=== PATIENT | female | born 1970 | race Caucasian/White ===

== ENCOUNTER → 2022-04-12 13:29 | Outpatient (BNVA) | payer SELFPAY | PROVIDERS: Visit Provider Podiatrist Foot & Ankle Surgery | DX: M77.52 Other enthesopathy of left foot and ankle (principal); M77.51 Other enthesopathy of right foot and ankle; M25.70 Osteophyte, unspecified joint | CPT/HCPCS: 36415; 73630; 85651; 86140; 86200; 86225; 86235; 86431 ==

== ENCOUNTER 2022-05-02 10:37 | Outpatient (CLI) | payer SELFPAY ==
[2022-05-02 11:23] LABS: Basophils # 0.1 10^3/uL (0.0-0.1); Basophils % 0.4 %; Eosinophils % 0.2 %; Hemoglobin 14.2 g/dL (11.5-15.3); Lymphocytes # 1.3 10^3/uL (0.8-4.8); Lymphocytes % 10.7 %; Mean Corpuscular Hemoglobin 31.3 pg (28.0-34.0); Mean Corpuscular Volume 94.7 fl (81-99); Mean Platelet Volume 10.5 fL (7.4-10.4); Monocytes # 0.2 10^3/uL (0.2-0.9); Monocytes % 1.7 %; Neutrophils # 10.82 10^3/uL (1.8-7.7); Neutrophils % 86.1 %; Nucleated Red Blood Cells % 0 %; Platelet Count 303 10^3/cmm (130-400); Red Blood Count 4.54 10^6/uL (4.1-5.3); White Blood Count 12.6 10^3/uL (4.0-10.0)
[2022-05-02 11:39] LABS: Alanine Aminotransferase 52 U/L (0-33); Albumin Level 3.9 g/dL (3.5-5.2); Alkaline Phosphatase 51 U/L (35-105); Aspartate Amino Transferase 33 U/L (0-32); Globulin 3.3 g/dL (1.3-4.6); Glomerular Filtration Rate 88.6 mL/min (90-130); Total Bilirubin 0.2 mg/dL (0.15-1.2); Total Protein 7.2 g/dL (6.6-8.7)
== END 2022-05-02 10:38 | disposition home or self-care (01) ==
PROVIDERS: PCP Nurse Practitioner Family; Visit Provider Internal Medicine Rheumatology
DX: M19.90 Unspecified osteoarthritis, unspecified site (principal); Z79.899 Other long term (current) drug therapy
CPT/HCPCS: 36415; 80076; 82565; 85025; 86140

== ENCOUNTER → 2022-05-25 09:38 | Outpatient (BNVA) | payer OTHER, SELFPAY | PROVIDERS: PCP Nurse Practitioner Family; Visit Provider Nurse Practitioner Family | DX: R06.02 Shortness of breath (principal); R07.9 Chest pain, unspecified | CPT/HCPCS: 71046 ==

== ENCOUNTER → 2022-05-30 10:20 | Outpatient (BNVA) | payer OTHER, SELFPAY | PROVIDERS: PCP Nurse Practitioner Family; Visit Provider Internal Medicine Rheumatology | DX: M25.50 Pain in unspecified joint (principal); Z79.899 Other long term (current) drug therapy; Z11.59 Encounter for screening for other viral diseases | CPT/HCPCS: 80076; 82565; 85025; 86140; 86704; 86803; 87340 ==

== ENCOUNTER → 2022-08-01 08:54 | Outpatient (BNVA) | payer OTHER, SELFPAY | PROVIDERS: PCP Nurse Practitioner Family; Visit Provider Internal Medicine Rheumatology | DX: M05.79 Rheumatoid arthritis with rheumatoid factor of multiple sites without organ or systems involvement (principal); Z79.899 Other long term (current) drug therapy | CPT/HCPCS: 80076; 82565; 85025; 86140 ==

== ENCOUNTER → 2022-09-26 12:31 | Outpatient (BNVA) | payer OTHER, SELFPAY | PROVIDERS: PCP Nurse Practitioner Family; Visit Provider Internal Medicine Rheumatology | DX: Z79.899 Other long term (current) drug therapy (principal); M05.79 Rheumatoid arthritis with rheumatoid factor of multiple sites without organ or systems involvement; Z71.85 Encounter for immunization safety counseling | CPT/HCPCS: 36415; 80076; 82565; 85025; 86140 ==

== ENCOUNTER 2022-12-02 15:06 | Outpatient (CLI) | payer OTHER, SELFPAY ==
--- NOTE | 2022-12-02 | USCV_ITS ---
Clotilde Delgadillo Age: 52 Gender: F : 1970 Exam Date: 12/02/2022 15:25 Ordering Phys: Neeru Brumfield-BC XX Technologist: EDGAR [place] [facility] [place] LE Pain HISTORY: Lower extremity pain. PROCEDURES: The venous duplex Doppler examination of both lower extremities was performed in the standard fashion. The following venous structures were evaluated: common femoral vein, profunda vein, proximal portion of the greater saphenous vein, superficial femoral vein, and the popliteal vein. In addition, the posterior tibial and peroneal trunk were evaluated. Serial compression, augmentation maneuvers, and spectral Doppler flow evaluation were performed. FINDINGS: Lt DVT seen from peroneal veins through the prox femoral vein. CONCLUSIONS Acute LEFT DVT from the proximal femoral vein extending distally thru the popliteal into the peroneal veins. RIGHT lower extremity veins are patent. Message left for Neeru FAUSTIN at time of study Joon Hannah MD (Electronically Signed) Final Date: 02 December 2022 15:56 S
== END 2022-12-02 15:07 | disposition home or self-care (01) ==
LOC: RAD 15:07
PROVIDERS: PCP Nurse Practitioner Family; Visit Provider Nurse Practitioner Family
DX: M79.661 Pain in right lower leg (principal); M79.662 Pain in left lower leg; I82.412 Acute embolism and thrombosis of left femoral vein
CPT/HCPCS: 93970

== ENCOUNTER → 2022-12-26 11:47 | Outpatient (BNVA) | payer OTHER, SELFPAY | PROVIDERS: PCP Nurse Practitioner Family; Visit Provider Internal Medicine Rheumatology | DX: Z79.899 Other long term (current) drug therapy (principal); M05.79 Rheumatoid arthritis with rheumatoid factor of multiple sites without organ or systems involvement; Z71.85 Encounter for immunization safety counseling | CPT/HCPCS: 36415; 80076; 82565; 85025; 86140 ==

== ENCOUNTER 2023-05-03 10:10 | Outpatient (CLI) | payer OTHER, SELFPAY ==
[2023-05-03 11:28] LABS: Basophils # 0.1 10^3/uL (0.0-0.1); Basophils % 0.6 %; Eosinophils # 0.2 10^3/uL (0.0-0.8); Eosinophils % 2.2 %; Hematocrit 42.8 % (36-47); Lymphocytes # 2.5 10^3/uL (0.8-4.8); Lymphocytes % 30.6 %; Mean Corpuscular HGB Conc 32.7 g/dL (30-55); Mean Corpuscular Hemoglobin 31.9 pg (27-33); Mean Corpuscular Volume 97.5 fl (85-98); Mean Platelet Volume 11.4 fL (7.4-10.4); Monocytes # 0.7 10^3/uL (0.2-0.9); Monocytes % 8.8 %; Neutrophils # 4.64 10^3/uL (1.8-7.7); Neutrophils % 57.1 %; Nucleated Red Blood Cells % 0 %; Platelet Count 178 10^3/cmm (157-399); Red Blood Count 4.39 10^6/uL (3.85-5.65); Red Cell Distribution Width 13.2 % (12.1-15.1); White Blood Count 8.14 10^3/uL (3.29-11.43)
[2023-05-03 11:42] LABS: Alanine Aminotransferase 27 U/L (0-33); Alkaline Phosphatase 131 U/L (35-105); Aspartate Amino Transferase 23 U/L (0-32); Globulin 2.8 g/dL (1.3-4.6); Glomerular Filtration Rate 88.2 mL/min (90-130); Total Bilirubin 0.3 mg/dL (0.15-1.2); Total Protein 6.8 g/dL (6.6-8.7)
--- NOTE | 2023-06-01 10:53 | P.CONIM_ITS ---
<Statement entered by Alexandre Mancilla MD - 06/01/23 14:41> I reviewed the medical student's note performed by Jemal Lamb and agree with clinical evaluation assessment and plan. Dr. Mancilla Providers/Reason For Consult 2 Consulting Physician/Specialty*: Dr. Mancilla, Neurology Reason for Consult*: Patient reports L face, L arm and L leg numbess, tingling, shooting pain and jerking movements since Feb 2023 Requesting Physician: Neeru Brumfield Attending Physician: Alexander Mancilla MD Primary Care Provider: Neeru Brumfield History of Present Illness History of Present Illness Clotilde Delgadillo is a 53 year old female who presents to the neurology clinic for L lower face, L arm and L leg intermittent numbness, tingling, shooting pain and jerking movements starting in Feb 2023, along with word finding difficulty. She was worked up for stroke for this in Feb 2023 in [facility], with CT and CTA. patient reports findings were normal, negative for stroke. Currently parasthesias have been worsening and moyclonic jerking movements has changed to involuntary tensing of the muscles involved. Patient has PMH of RA with neck back and hip pain, asthma with exercise intolerance, DVT LLE 2022, Migraines onset 11 year old. Negative for MS, stroke, seizures, or syncope or heart problems No side effects of medications at this time reported Family history: father with pacemaker No smoking, or drug use Review of Systems 2 General: Reports: 10 or more systems reviewed and unremarkable except in HPI and below Musc: Reports: neck pain, back pain, limited range of motion and other (Right hip pain) Medications/Allergies Home Medications Medication Instructions Recorded Confirmed Last Taken Type folic acid 1 mg tablet 3 mg (3 x 1 mg) PO DAILY #90 tabs 03/01/23 06/01/23 Unknown Rx omeprazole 40 mg capsule,delayed 40 mg PO DAILY #90 caps 03/01/23 06/01/23 Unknown Rx release hydroxychloroquine 200 mg tablet 200 mg PO BID #60 tabs 04/06/23 06/01/23 Unknown Rx hydroxychloroquine 200 mg tablet 200 mg PO BID #60 tabs 04/06/23 06/01/23 Unknown Rx upadacitinib 15 mg tablet,extended 15 mg PO DAILY #30 tabs 04/06/23 06/01/23 Unknown Rx release 24 hr (Rinvoq) pregabalin 50 mg capsule 50 mg PO TID 06/01/23 06/01/23 Unknown History Allergies Allergy/AdvReac Type Severity Reaction Status Date / Time meloxicam Allergy Intermediate Unknown Verified 06/01/23 09:55 aspirin AdvReac Intermediate upset Verified 06/01/23 09:55 stomach methotrexate AdvReac Intermediate hair fell Verified 06/01/23 09:55 out bactrim Allergy rash Uncoded 06/01/23 09:55 mushrooms Allergy vomiting Uncoded 06/01/23 09:55 and rash tramadol AdvReac Intermediate nausea Uncoded 06/01/23 09:55 vomiting and chills folic acid 3 mg daily hydroxychloroquine 200mg BID omeprazole 40mg daily Rinvoq 15mg Ext Release PO daily PFSH Acute 2 PFSH: Medical History (Updated 06/01/23 @ 11:12 by Alexander Mancilla MD) Weakness History of DVT (deep vein thrombosis) left lower extremity Chronic steroid use Immunization counseling High risk medication use Seropositive rheumatoid arthritis of multiple sites Asthma Surgical History History of cholecystectomy History of tonsillectomy Family History Grandmother Cancer Other Family history of premature coronary artery disease Hypertension Lung disease Denies family history of Rheumatoid arthritis Diabetes Lupus Chronic kidney disease (CKD) Stroke Social History Smoking and tobacco/nicotine status: never used tobacco/nicotine Alcohol intake: never Substance/Drug Use: never Physical Exam 2 Narrative: General: AOx4 no acute distress HEENT: normocephalic, atraumatic, EOMI, PERLLA, neck supple, no sinus drainage or pressure, , tempanic membrane normal, normal palate elevation and tongue movements normal Neck Normal Range of motion and strength, shoulder shrug normal strength bilaterally Cardiac: RRR, no M/R/G, no edema, radial pulses 1+ Pulmonic: Normal breath sounds, Abdomen: normal bowel sounds MSK:normal strength upper and lower extremities, decreased range of motion R hip, Neurologic: no babinski, no garza, DTR +2 throughout, no clonus, no spasticity, no fasciculations, no muscular atrophy, normal sensation, gait normal, rapid alternating movements normal, heel to carey normal, finger to nose slow intact, positive romberg, fine tremor with arms held still outstreched, Psych: normal mood and affect Data 05/03/23 10:55 05/03/23 10:55 A&P Assessment and plan (1) Paresthesia of left arm and leg: (2) Myoclonic jerking: (3) Extremity pain: (4) Neck pain: Plan Diagnosis: 1 history DVT: Evaluate for hypercoagulable conditions 2. Evaluate for possible stroke/TIAs 3. evaluate for epileptiform activity 4. Evaluate for causes of neuropathy 5. evaluate for inflammatory condition causing myoclonus shooting pain and parasthesias Plan: 1. evaluate for hypercoagulable condition CBC, CMP, homocystein, Beta1 glycoprotein, Lupus anticoagulant, Factor 5 leiden activity, 2 Evaluate for stroke/TIA or cerebral abnormality: MRI head with contrast 3. Evaluate for epileptiform activity Sleep deprived EEG 4. Evaluate for causes of neuropathy: B12, TSH free T4, free T3, TPO Antibody Coding Level of Care Code Acute Code for Chg Fwd Diagnoses Paresthesia of left arm and leg R20.2 Myoclonic jerking G25.3 Extremity pain M79.609 Neck pain M54.2
== END 2023-05-03 10:11 | disposition home or self-care (01) ==
LOC: LAB 10:11
PROVIDERS: PCP Nurse Practitioner Family; Visit Provider Internal Medicine Rheumatology
DX: M05.79 Rheumatoid arthritis with rheumatoid factor of multiple sites without organ or systems involvement (principal); Z79.899 Other long term (current) drug therapy
CPT/HCPCS: 36415; 80076; 82565; 85025; 86140

== ENCOUNTER → 2023-06-01 10:59 | Outpatient (BNVA) | payer OTHER, SELFPAY | PROVIDERS: PCP Nurse Practitioner Family; Visit Provider Psychiatry & Neurology Neurology | DX: M25.50 Pain in unspecified joint (principal); R29.90 Unspecified symptoms and signs involving the nervous system; M05.79 Rheumatoid arthritis with rheumatoid factor of multiple sites without organ or systems involvement; E55.9 Vitamin D deficiency, unspecified; Z86.718 Personal history of other venous thrombosis and embolism; G45.9 Transient cerebral ischemic attack, unspecified; M54.2 Cervicalgia; M79.10 Myalgia, unspecified site; R53.1 Weakness; R20.2 Paresthesia of skin; G25.3 Myoclonus; M79.609 Pain in unspecified limb | CPT/HCPCS: 36415; 81241; 82306; 82607; 82746; 83090; 83735; 83921; 85210; 85613; 85730; 86146; 86147 ==

== ENCOUNTER 2023-06-09 06:37 | Outpatient (CLI) | payer OTHER, SELFPAY ==
--- NOTE | 2023-06-09 06:45 | USCV_ITS ---
Elie Clotilde Age: 53 Gender: F : 1970 Exam Date: 06/09/2023 06:47 Ordering Phys: Alexander Mancilla MD Technologist: EDGAR [place] [facility] [place]: LT sided numbness Risk Factors: Previous Vascular Surgery: Right Brachial BP: / Left Brachial BP: / Right Left Velocity (cm/s) Spectral Plaque Velocity (cm/s) Spectral Plaque Syst/Diast Broadening Syst/Diast Broadening 110.00/38.70 Prox CCA 112.20/ 43.70 86.70/ 32.30 Mid CCA 97.90 / 41.30 84.10/ 31.00 Distal CCA 95.50 / 46.00 78.10/ 29.50 Prox ICA 69.40 / 33.00 87.60/ 47.60 Mid ICA 103.50/ 42.10 125.90/57.60 Distal ICA 84.30 / 40.80 120.00 ECA 110.30 1.50 ICA/CCA 1.10 Antegrade Vertebral Antegrade 55.80/ 23.70 cm/s 47.70/ 21.10 cm/s Tri Subclavian Tri 124.2 122.4 0 0 FINDINGS Comparison: none available. No significant elevation of systolic or diastolic velocities. Waveforms are normal. No significant amount of calcified plaque or intimal thickening identified. CONCLUSIONS Normal carotid doppler ultrasound. Dr. Ling Hernandez DO (Electronically Signed) Final Date: 09 June 2023 12:25 S
== END 2023-06-09 06:38 | disposition home or self-care (01) ==
LOC: RAD 06:37
PROVIDERS: PCP Nurse Practitioner Family; Visit Provider Psychiatry & Neurology Neurology
DX: R29.90 Unspecified symptoms and signs involving the nervous system (principal); M05.79 Rheumatoid arthritis with rheumatoid factor of multiple sites without organ or systems involvement; Z86.718 Personal history of other venous thrombosis and embolism; R20.0 Anesthesia of skin
CPT/HCPCS: 93880

== ENCOUNTER 2023-07-04 09:22 | Outpatient (CLI) | payer OTHER, SELFPAY ==
--- NOTE | 2023-07-04 09:30 | MR_ITS ---
WS: [id number] MR CERVICAL SPINE WO/W DATE OF EXAMINATION: COMPARISON: None. HISTORY: G45.9 - Transient cerebral ischemic attack, unspecified TECHNIQUE: Sagittal T1, T2 and T2 inversion recovery; axial T2, T2 gradient and fiesta. Post gadolini um imaging with fat saturation technique. FINDINGS: Straightening of the normal cervical lordosis. No high grade central canal narrowing. Small periphera l T2 hyperintense lesion in the cervical cord at RIGHT C5-6. No enhancement. No other visualized lesi ons. This may represent a chronic small demyelinating lesion. Recommend correlation with clinical his tory. C2-3: Mild facet arthropathy. Spinal canal and foramen are patent. C3-4: Mild facet arthropathy. Spinal canal and foramen are patent. C4-5: Mild facet arthropathy. Spinal canal and foramen are patent. C5-6: Shallow RIGHT paracentral protrusion with slight contact of the cervical cord. Mild facet arthr opathy. Spinal canal and foramen are patent. C6-7: No significant disc bulging. Spinal canal and foramen are patent. C7-T1: Mild LEFT and no significant RIGHT foraminal narrowing. Spinal canal is patent. MR/MR cervical spine wo/w [id number] IMPRESSION: 1. Straightening of the normal cervical lordosis. No high-grade central canal narrowing. 2. Small eccentric T2 hyperintense lesion in the RIGHT dorsal cord at C5-6. No enhancement. This may present a chronic demyelinating lesion. No cord atrophy. No other suspicious lesions. Recommend correlation with clinical history and c onsider MRI of the head in further evaluation. 3. Minimal disc bulging C4-C5 and C5-C6 with slight indentation on the RIGHT v entral cervical cord at C5-6. 4. Mild facet arthropathy worse at C4-C5 and C5-C6 5. Mild LEFT C7-T1 bony foraminal narrowing.
[2023-07-04] MEDS: gadobenate dimeglumine 20 mL vial IV (10:06)
== END 2023-07-04 09:23 | disposition home or self-care (01) ==
LOC: RAD 09:24
PROVIDERS: PCP Nurse Practitioner Family; Visit Provider Psychiatry & Neurology Neurology
DX: G45.9 Transient cerebral ischemic attack, unspecified (principal); M05.79 Rheumatoid arthritis with rheumatoid factor of multiple sites without organ or systems involvement; M50.321 Other cervical disc degeneration at C4-C5 level; M50.322 Other cervical disc degeneration at C5-C6 level; M47.892 Other spondylosis, cervical region; M99.62 Osseous and subluxation stenosis of intervertebral foramina of thoracic region
CPT/HCPCS: 72156; A9577

== ENCOUNTER 2023-07-05 09:13 | Outpatient (CLI) | payer OTHER, SELFPAY ==
--- NOTE | 2023-07-05 09:30 | USCV_ITS ---
Clotilde Delgadillo Age: 53 Gender: F : 1970 Exam Date: 07/05/2023 09:24 Ordering Phys: Nelda Knox Technologist: CT Exam Location: [facility] [place] Indication: gambino BP: 115 / 81 HR: 69 Rhythm: Sinus Technical Quality: Adequate MEASUREMENTS (Male / Female) Normal Values 2D ECHO LVOT Diameter 2.0 cm LV Ejection Fraction MOD 2C 61.1 % LV Ejection Fraction 2C AL 60.9 % LA Diameter 3.6 cm RA Systolic Volume 4C AL 42.0 ml RA Systolic Volume 4C MOD 41.2 ml LA Sys Volume AL 40.0 cm cubed LA Sys Volume Index AL 17.7 cm cubed/m squared Aorta at Sinotubular Diameter 2.6 cm M-MODE LA Ao Ratio MM 1.6 AV Cusp Separation MM 1.8 cm DOPPLER AV Peak Velocity 102.0 cm/s LVOT Peak Velocity 76.0 cm/s AV Area Cont Eq vti 2.7 cm squared AV Area Cont Eq pk 2.5 cm squared MV Peak Velocity 80.0 cm/s MV Area PHT 3.7 cm squared Mitral E to A Ratio 1.3 TV Peak Velocity 222.5 cm/s TR Peak Velocity 229.0 cm/s TR Peak Gradient 21.0 mmHg TV Peak E Velocity 80.0 cm/s Right Atrial Pressure 3.0 mmHg Pulmonary Artery Systolic Pressu 24.0 mmHg PV Peak Velocity 115.0 cm/s FINDINGS Left Ventricle Left ventricle is normal in size. LV systolic function is normal with EF 50-55%. No regional wall abnormalities are seen. Right Ventricle Normal in size and function Right Atrium Normal in size Left Atrium Normal in size Mitral Valve Structurally normal mitral valve. Mild mitral regurgitation Aortic Valve Structurally normal aortic valve. No significant stenosis or regurgitation. Tricuspid Valve Mild tricuspid regurgitation. Pulmonary artery systolic pressure is normal. Pulmonic Valve Not well visualized Pericardium Normal Aorta Normal in size IVC Not well visualized CONCLUSIONS LV systolic function is normal with EF of 50-55% Mild mitral regurgitation Mild tricuspid regurgitation No comparison studies are available. Hernandez Victoria MD (Electronically Signed) Final Date: 19 July 2023 19:13 S
== END 2023-07-05 09:14 | disposition home or self-care (01) ==
LOC: RAD 09:13
PROVIDERS: PCP Nurse Practitioner Family; Visit Provider Nurse Practitioner Family
DX: R68.89 Other general symptoms and signs (principal); I34.0 Nonrheumatic mitral (valve) insufficiency; I07.1 Rheumatic tricuspid insufficiency
CPT/HCPCS: 93306

== ENCOUNTER 2023-07-22 14:50 | Emergency (ER) | payer OTHER, SELFPAY ==
[2023-07-22 14:55] VITALS: BP 125/83; PULSE 105; RESP 16; TEMP 36.3; O2SAT 97
[2023-07-22 16:00] LABS: Basophils % 0.7 %; Eosinophils # 0.1 10^3/uL (0.0-0.8); Eosinophils % 0.9 %; Hematocrit 47.1 % (36-47); Lymphocytes # 1.3 10^3/uL (0.8-4.8); Lymphocytes % 23.5 %; Mean Corpuscular HGB Conc 34.4 g/dL (30-55); Mean Corpuscular Hemoglobin 32.7 pg (27-33); Mean Platelet Volume 10.9 fL (7.4-10.4); Monocytes # 0.4 10^3/uL (0.2-0.9); Monocytes % 7.4 %; Neutrophils # 3.83 10^3/uL (1.8-7.7); Nucleated Red Blood Cells % 0 %; Platelet Count 222 10^3/cmm (157-399); Red Blood Count 4.96 10^6/uL (3.85-5.65); Red Cell Distribution Width 12.3 % (12.1-15.1); White Blood Count 5.71 10^3/uL (3.29-11.43)
[2023-07-22] MEDS: sodium chloride 0.9% 1,000 ML 999 ML IV (16:10)
[2023-07-22] MEDS: ondansetron 2 mg/ML SDV 2 mL 4 MG IVP (16:11)
[2023-07-22 16:21] LABS: Alanine Aminotransferase 26 U/L (0-33); Albumin Level 4.7 g/dL (3.5-5.2); Alkaline Phosphatase 159 U/L (35-105); Aspartate Amino Transferase 27 U/L (0-32); Blood Urea Nitrogen 11 mg/dL (6-20); Calcium 10.2 mg/dL (8.5-10.5); Carbon Dioxide 26 mmol/L (22-29); Chloride 103 mmol/L (98-107); Creatinine Clr Calc Pharmacy 102.7285; Globulin 3.2 g/dL (1.3-4.6); Glomerular Filtration Rate 75.6 mL/min (90-130); Glucose 96 mg/dL (65-115); Lipase 46 U/L (13-60); Osmolality Calculated 291 mOsm/kg (285-295); Sodium 141 mmol/L (136-145); Total Bilirubin 0.5 mg/dL (0.15-1.2); Total Protein 7.9 g/dL (6.6-8.7)
[2023-07-22 16:44] LABS: Anion Gap 16.3 (5-19); Potassium 4.3 mmol/L (3.5-5.1)
[2023-07-22 16:48] LABS: Add Urine Microscopic? YES; Bilirubin Urine Neg (Negative); Blood Urine Neg (Negative); Glucose Urine UA Norm (Normal); Ketones Urine 1+ (Negative); Leukocyte Esterase Urine Trace (Negative); Nitrate Urine Negative (Negative); Protein Urine Trace (Negative); Urine Appearance Slightly Cloudy (CLEAR); Urine Color Yellow (Yellow); Urobilinogen Urine 1 mg/dL (Negative); pH Urine 6 (5-7)
[2023-07-22 16:49] LABS: Add Urine Culture? No; Bacteria Urine 1+ /hpf; WBC Urine 0-4 /hpf (0-5)
--- NOTE | 2023-07-22 16:55 | W.ED.NAVMDI ---
HPI - Nausea/Vomiting/Diarrhea General: Chief complaint: Nausea/Vomiting/Diarrhea Stated complaint: n/v, chills, sweats, headache Time Seen by Provider: 07/22/23 15:29 History of Present Illness: Patient ran out of her Lyrica that she was taking 50 mg 3 times a day since approximately February. Patient is been out of them for about 5 days. Patient had no symptoms for the first couple days. Couple days ago she had some mild nausea, worsening yesterday and then today she was not able to keep anything down at all. Patient said the Lyrica did not work and if these are the side effects she does not want to go back on it. Patient denies any diarrhea or urinary symptoms. Review of Systems General: Reports: 10 or more systems reviewed and unremarkable except in HPI and below PFSH ED PFSH: Medical History Weakness History of DVT (deep vein thrombosis) left lower extremity Chronic steroid use Immunization counseling High risk medication use Seropositive rheumatoid arthritis of multiple sites Asthma Surgical History History of cholecystectomy History of tonsillectomy Family History Grandmother Cancer Other Family history of premature coronary artery disease Hypertension Lung disease Denies family history of Rheumatoid arthritis Diabetes Lupus Chronic kidney disease (CKD) Stroke Social History Smoking and tobacco/nicotine status: former use of tobacco/nicotine Alcohol intake: never Substance/Drug Use: never Physical Exam Const: COMMON NORMALS: no acute distress, average body habitus, patient oriented x3, no limitations, healthy appearing, alert and well nourished HENMT: COMMON NORMALS: normocephalic, atraumatic, hearing grossly normal bilaterally, external ears normal, Normal external nose present and moist oral mucous membranes HEAD & SCALP: normocephalic and atraumatic NOSE: Normal external nose present EXTERNAL EAR: Yes external ears normal Neck/C-Spine: COMMON NORMALS: full ROM, no lymphadenopathy, supple, no meningeal signs and no JVD Chest: COMMONS NORMALS: normal inspection of the chest and normal palpation of entire chest wall Resp: COMMON NORMALS: normal respiratory effort, No retractions, No use of accessory muscles and clear to auscultation bilaterally AUSCULTATION: clear to auscultation bilaterally Cardio: COMMON NORMALS: no JVD, regular rate, regular rhythm, S1 normal heart sound present, S2 normal heart sound present, No gallops present (Cardio), No clicks present (Cardio), No murmurs present (Cardio) and No rub (Cardio) RATE: regular rate RHYTHM: regular rhythm HEART SOUNDS: S1 normal heart sound present and S2 normal heart sound present GI: COMMON NORMALS: Normal to inspection, nondistended, normoactive bowel sounds present, Soft to palpation, non-tender, No hepatosplenomegaly present and no masses PALPATION: Yes Soft to palpation and Yes No hepatosplenomegaly present Neuro: COMMON NORMALS: patient oriented x3 SENSORIUM/ORIENTATION: Yes alert MENINGEAL SIGNS: Yes no meningeal signs Course Vital Signs: Vital signs: Vital Signs Temperature 97.6 F 07/22/23 17:15 Pulse Rate 92 07/22/23 17:15 Respiratory Rate 16 07/22/23 17:15 Blood Pressure 132/81 07/22/23 17:15 Pulse Oximetry 98 07/22/23 17:15 MDM - Nausea/Vomiting/Diarrhea Medical Decision Making Patient stopped her Lyrica cold turkey approximately 5 days ago and appears to be having withdrawal symptoms. Patient was given 1 L normal saline and 4 mg Zofran in the ER and her symptoms moderately improved. Lab work was obtained which was fairly unremarkable. Urinalysis showed 5-10 squamous cells but did have trace leukocyte Estrace with 1+ bacteria. Will wait for the cultured and see if this is a contaminant or not. Patient says she does not want to go back on the Lyrica so therefore we will prescribe her some Zofran to help with her nausea and vomiting. Differential Diagnosis Unlikely traveler's diarrhea, food poisoning, gastroenteritis, clostridium difficile infection, drug-induced nausea and vomiting or dehydration Medical Records I reviewed the patient's medical records. Lab Data 07/22/23 15:50 07/22/23 15:50 Laboratory Results WBC 5.71 10^3/uL (3.29-11.43) 07/22/23 15:50 RBC 4.96 10^6/uL (3.85-5.65) 07/22/23 15:50 Hgb 16.20 g/dL (11.27-16.99) 07/22/23 15:50 Hct 47.1 % (36-47) H 07/22/23 15:50 MCV 95.0 fl (85-98) 07/22/23 15:50 MCH 32.7 pg (27-33) 07/22/23 15:50 MCHC 34.4 g/dL (30-55) 07/22/23 15:50 RDW 12.3 % (12.1-15.1) 07/22/23 15:50 Plt Count 222 10^3/cmm (157-399) 07/22/23 15:50 MPV 10.9 fL (7.4-10.4) H 07/22/23 15:50 Neut % (Auto) 67.0 % 07/22/23 15:50 Lymph % (Auto) 23.5 % 07/22/23 15:50 [place] % (Auto) 7.4 % 07/22/23 15:50 Eos % (Auto) 0.9 % 07/22/23 15:50 Baso % (Auto) 0.7 % 07/22/23 15:50 Neut # (Auto) 3.83 10^3/uL (1.8-7.7) 07/22/23 15:50 Lymph # (Auto) 1.3 10^3/uL (0.8-4.8) 07/22/23 15:50 [place] # (Auto) 0.4 10^3/uL (0.2-0.9) 07/22/23 15:50 Eos # (Auto) 0.1 10^3/uL (0.0-0.8) 07/22/23 15:50 Baso # (Auto) 0.0 10^3/uL (0.0-0.1) 07/22/23 15:50 Nucleated RBC % (auto) 0 % 07/22/23 15:50 Nucleated RBCs # 0.0 /100WBC 07/22/23 15:50 Sodium 141 mmol/L (136-145) 07/22/23 15:50 Potassium 4.3 mmol/L (3.5-5.1) 07/22/23 15:50 Chloride 103 mmol/L (98-107) 07/22/23 15:50 Carbon Dioxide 26 mmol/L (22-29) 07/22/23 15:50 Anion Gap 16.3 (5-19) 07/22/23 15:50 BUN 11 mg/dL (6-20) 07/22/23 15:50 Creatinine 0.8 mg/dL (0.5-0.9) 07/22/23 15:50 GFR Calculation 75.6 mL/min (90-130) L 07/22/23 15:50 Glucose 96 mg/dL (65-115) 07/22/23 15:50 Calculated Osmolality 291 mOsm/kg (285-295) 07/22/23 15:50 Calcium 10.2 mg/dL (8.5-10.5) 07/22/23 15:50 Total Bilirubin 0.5 mg/dL (0.15-1.2) 07/22/23 15:50 AST 27 U/L (0-32) 07/22/23 15:50 ALT 26 U/L (0-33) 07/22/23 15:50 Alkaline Phosphatase 159 U/L (35-105) H 07/22/23 15:50 Total Protein 7.9 g/dL (6.6-8.7) 07/22/23 15:50 Albumin 4.7 g/dL (3.5-5.2) 07/22/23 15:50 Globulin 3.2 g/dL (1.3-4.6) 07/22/23 15:50 Lipase 46 U/L (13-60) 07/22/23 15:50 Urine Color Yellow (Yellow) 07/22/23 16:05 Urine Appearance Slightly cloudy (CLEAR) 07/22/23 16:05 Urine pH 6 (5-7) 07/22/23 16:05 Ur Specific [place] 1.030 (1.005-1.030) 07/22/23 16:05 Urine Protein Trace (Negative) 07/22/23 16:05 Urine Glucose (UA) Norm (Normal) 07/22/23 16:05 Urine Ketones 1+ (Negative) H 07/22/23 16:05 Urine Blood Neg (Negative) 07/22/23 16:05 Urine Nitrate Negative (Negative) 07/22/23 16:05 Urine Bilirubin Neg (Negative) 07/22/23 16:05 Urine Urobilinogen 1 mg/dL (Negative) H 07/22/23 16:05 Ur Leukocyte Esterase Trace (Negative) H 07/22/23 16:05 Urine RBC None /hpf (0-2) 07/22/23 16:05 Urine WBC 0-4 /hpf (0-5) H 07/22/23 16:05 Ur Squamous Epith Cells 5-10 /hpf (0-5) H 07/22/23 16:05 Amorphous Sediment Not Reportable 07/22/23 16:05 Urine Bacteria 1+ /hpf (NONE) H 07/22/23 16:05 All radiology interpretation(s) finalized by discharge Discharge Plan Discharge Patient Disposition: Home Clinical Impression: Medication withdrawal Qualifiers: Substance type: other psychoactive substance Qualified Code(s): F19.939 - Other psychoactive substance use, unspecified with withdrawal, unspecified Nausea & vomiting Qualifiers: Vomiting type: unspecified Qualified Code(s): R11.2 - Nausea with vomiting, unspecified Condition: Stable Prescriptions: New ondansetron HCl 4 mg tablet 4 mg PO Q8H PRN (Reason: nausea and vomiting) Qty: 14 0RF Discontinued pregabalin 50 mg capsule 50 mg PO TID No Action Rinvoq 15 mg tablet extended release 24 hr 15 mg PO DAILY Qty: 30 5RF hydroxychloroquine 200 mg tablet 200 mg PO BID Qty: 60 3RF hydroxychloroquine 200 mg tablet 200 mg PO BID Qty: 60 5RF omeprazole 40 mg capsule,delayed release(DR/EC) 40 mg PO DAILY Qty: 90 1RF cholecalciferol (vitamin D3) 1,250 mcg (50,000 unit) tablet 50,000 unit PO ONCE Qty: 12 5RF Rx Instructions: take 1 tab weekly folic acid 1 mg tablet See Rx Instructions .ROUTE .COMPLEX Qty: 90 0RF Dose Instruction: Take 3 tablets by mouth once daily Rx Instructions: Take 3 tablets by mouth once daily Discharge Orders: Discharge ED (Routine); Ordered 07/22/23 Ordered By: Isaac Gomez Referrals: Neeru Brumfield [Primary Care Provider] - 1 week Patient Instructions: Acute Nausea and Vomiting (ED) Activity Restrictions/Additional Instructions: Your lab work in ER was unremarkable. Is thought your nausea and vomiting is from your sudden stopping and withdrawal side effects of the pregabalin. You will be prescribed some Zofran to take for the nausea. Most of the time the pregabalin withdrawal symptoms resolve in 7 to 10 days. Please follow-up with your family practice physician within next 7 days for further evaluation and treatment. Coding Level of Care Code ED Bondactor Machine Operator for Dennis Reilly
[2023-07-22 17:15] VITALS: BP 132/81; PULSE 92; RESP 16; TEMP 36.4; O2SAT 98
== END 2023-07-22 17:16 | disposition home or self-care (01) ==
PROVIDERS: Family Medicine; Emergency Provider Emergency Medicine; PCP Nurse Practitioner Family
DX: F19.939 Other psychoactive substance use, unspecified with withdrawal, unspecified (principal); R11.2 Nausea with vomiting, unspecified; Z87.891 Personal history of nicotine dependence
CPT/HCPCS: 36415; 80053; 81001; 83690; 85025; 96374; 99284; J2405; J7030

== ENCOUNTER → 2023-08-24 11:22 | Outpatient (BNVA) | payer OTHER, SELFPAY | PROVIDERS: PCP Nurse Practitioner Family; Visit Provider Internal Medicine Rheumatology | DX: R20.2 Paresthesia of skin (principal); Z79.899 Other long term (current) drug therapy; M05.79 Rheumatoid arthritis with rheumatoid factor of multiple sites without organ or systems involvement; Z71.85 Encounter for immunization safety counseling | CPT/HCPCS: 36415; 80076; 82565; 85025; 85651; 86140 ==

== ENCOUNTER 2023-10-03 11:59 | Outpatient (CLI) | payer OTHER, SELFPAY ==
--- NOTE | 2023-10-03 12:15 | MR_ITS ---
WS: [id number] MRI HEAD WITH CONTRAST TECHNIQUE: Sagittal T1, T2 axial, T2 axial FLAIR, axial susceptibility weighted imaging, axial diffus ion weighted images, and coronal T2 images were obtained. Pre and post-T1 axial and post T1 coronal i mages. ADC and FSPGR images. CLINICAL INFORMATION: R20.2 - Paresthesia of skin COMPARISON: None. FINDINGS: No evidence of restricted diffusion to suggest acute ischemia. Ventricular system and basal cisterns are patent. No suspicious intracranial signal abnormalities. Normal cespedes-white differentiation. Melissa l posterior fossa. Normal vascular flow voids at the skull base. Mild mucosal thickening in the ethmo id air cells and RIGHT sphenoid sinus. Mastoid air cells are well aerated. No hemosiderin on the susc eptibility weighted images. Normal optic chiasm and pituitary infundibulum. Temporal lobes and hippocampal formations are normal in appearance. No abnormal gadolinium enhancement. Normal dural venous sinuses. MR/MR head wo/w con [id number] IMPRESSION: 1. No evidence of restricted diffusion to suggest acute ischemia 2. No suspicious intracranial signal abnormalities. 3. No hemosiderin on the susceptibility weighted images. 4. No abnormal gadolinium enhancement. 5. No signal abnormalities in the temporal lobes.
== END 2023-10-03 12:00 | disposition home or self-care (01) ==
LOC: RAD 11:59
PROVIDERS: PCP Nurse Practitioner Family; Visit Provider Psychiatry & Neurology Neurology
DX: R20.2 Paresthesia of skin (principal); M54.2 Cervicalgia; M79.609 Pain in unspecified limb; G25.3 Myoclonus; R53.1 Weakness; M79.10 Myalgia, unspecified site
CPT/HCPCS: 70553; A9577

== ENCOUNTER 2023-10-05 08:58 | Outpatient (CLI) | payer OTHER, SELFPAY ==
--- NOTE | 2023-10-05 09:15 | FL_ITS ---
WS: [id number] LUMBAR PUNCTURE CLINICAL INFORMATION: G25.3 - Myoclonus TECHNIQUE: Informed consent: The procedure and its potential risk and complications were discussed with the bernice ent. Verbal and written consent was obtained. Timeout: A timeout was performed to confirm correct patient, procedure, and site. Patient was prepped and draped in the usual sterile fashion. Lidocaine 1% was used for local anesthes ia. Utilizing fluoroscopic guidance, a 3.5 inch 22-gauge spinal needle was advanced into the subarach noid space at L3-L4 via LEFT oblique sublaminar approach. Free flow of clear CSF was obtained. 12 cc of CSF was collected and sent the lab for further analysis. Patient remained supine in the radiology suite 1 hour post procedure without complication. FLUOROSCOPIC TIME: 2min [id number] # of spot films: 1 FL/FL guided lumbarpunc dx* [id number] IMPRESSION: 1. Uncomplicated fluoroscopically guided lumbar puncture. 2. Normal opening pressure of 15 cm CSF
[2023-10-05 10:40] LABS: Mononuclear WBC CSF % 100 % (50-90); Polynuclear WBC CSF % 0 % (0-10); Red Blood Cell CSF 0 10^3/uL (0-0); White Blood Cell CSF 1 /uL (0-5)
[2023-10-05 10:52] LABS: Appearance CSF CLEAR (CLEAR); Color CSF COLORLESS (COLORLESS)
[2023-10-05 10:59] LABS: Glucose CSF 60 mg/dL (40-70); Total Protein CSF 25 mg/dL (15-45)
[2023-10-06 08:26] LABS: Cytomegalovirus IgG Antibody <0.60 U/mL
[2023-10-09 09:30] LABS: Epstein Barr Virus DNA PCR NOT DETECTED; Epstein Barr Virus DNA QN PCR NOT DETECTED copies/mL; Epstein Barr Virus Source CEREBROSPINAL FLUID
== END 2023-10-05 08:59 | disposition home or self-care (01) ==
LOC: RAD 08:58
PROVIDERS: PCP Nurse Practitioner Family; Visit Provider Psychiatry & Neurology Neurology
DX: G25.3 Myoclonus (principal); R20.2 Paresthesia of skin; M54.2 Cervicalgia; M79.609 Pain in unspecified limb; R53.1 Weakness; M79.10 Myalgia, unspecified site; R29.90 Unspecified symptoms and signs involving the nervous system; I99.8 Other disorder of circulatory system; M25.50 Pain in unspecified joint
CPT/HCPCS: 62328; 80503; 82040; 82042; 82164; 82784; 82945; 83916; 84157; 86403; 86592; 86644; 86788; 86789; 87015; 87070; 87075; 87116; 87205; 87206; 87327; 87798; 87801; 89050

== ENCOUNTER 2023-11-21 10:09 | Outpatient (CLI) | payer OTHER, SELFPAY ==
[2023-11-21 11:08] LABS: Free T4 Free Thyroxine 0.93 ng/dL (0.82-1.77); T3 Free 2.5 PG/ML (2.0-4.4); Thyroid Stimulating Hormone 1.72 uIU/mL (0.27-4.20)
== END 2023-11-21 10:10 | disposition home or self-care (01) ==
PROVIDERS: PCP Nurse Practitioner Family; Visit Provider Psychiatry & Neurology Neurology
DX: G25.3 Myoclonus (principal); R20.2 Paresthesia of skin; I99.8 Other disorder of circulatory system; R29.90 Unspecified symptoms and signs involving the nervous system; M25.50 Pain in unspecified joint; M79.10 Myalgia, unspecified site; R53.1 Weakness; M79.609 Pain in unspecified limb; M54.2 Cervicalgia
CPT/HCPCS: 36415; 84432; 84439; 84443; 84481; 86376; 86800

== ENCOUNTER → 2023-12-06 11:54 | Outpatient (BNVA) | payer OTHER, SELFPAY | PROVIDERS: PCP Nurse Practitioner Family; Visit Provider Internal Medicine Rheumatology | DX: Z11.1 Encounter for screening for respiratory tuberculosis (principal); Z79.899 Other long term (current) drug therapy; M05.79 Rheumatoid arthritis with rheumatoid factor of multiple sites without organ or systems involvement | CPT/HCPCS: 36415; 80076; 82565; 85025; 85651; 86140; 86480 ==

== ENCOUNTER → 2024-02-13 10:12 | Outpatient (BNVA) | payer OTHER, SELFPAY | PROVIDERS: PCP Nurse Practitioner Family; Referring Provider Psychiatry & Neurology Neurology; Visit Provider Internal Medicine | DX: R77.8 Other specified abnormalities of plasma proteins (principal) | CPT/HCPCS: 36415; 86800 ==

== ENCOUNTER → 2024-04-10 12:11 | Outpatient (BNVA) | payer OTHER, SELFPAY | PROVIDERS: PCP Nurse Practitioner Family; Visit Provider Internal Medicine Rheumatology | DX: Z79.899 Other long term (current) drug therapy (principal); M05.79 Rheumatoid arthritis with rheumatoid factor of multiple sites without organ or systems involvement | CPT/HCPCS: 36415; 80076; 82565; 85025; 85651; 86140 ==

== ENCOUNTER → 2024-07-24 12:31 | Outpatient (BNVA) | payer OTHER, SELFPAY | PROVIDERS: PCP Nurse Practitioner Family; Visit Provider Internal Medicine Rheumatology | DX: Z79.899 Other long term (current) drug therapy (principal); M05.79 Rheumatoid arthritis with rheumatoid factor of multiple sites without organ or systems involvement; Z71.85 Encounter for immunization safety counseling | CPT/HCPCS: 36415; 72040; 72100; 73562; 85025; 85651 ==

== ENCOUNTER 2024-11-13 10:48 | Outpatient (CLI) | payer OTHER, SELFPAY ==
[2024-11-13 12:12] LABS: Hematocrit 43.5 % (36-47); Hemoglobin 14.40 g/dL (11.27-16.99); Mean Corpuscular HGB Conc 33.1 g/dL (30-55); Mean Corpuscular Hemoglobin 32.0 pg (27-33); Mean Corpuscular Volume 96.7 fl (85-98); Nucleated Red Blood Cells % 0 %; Platelet Count 169 10^3/cmm (157-399); Red Blood Count 4.50 10^6/uL (3.85-5.65); White Blood Count 5.40 10^3/uL (3.29-11.43)
[2024-11-13 12:44] LABS: Alanine Aminotransferase 22 U/L (0-33); Albumin Level 4.2 g/dL (3.5-5.2); Alkaline Phosphatase 106 U/L (35-105); Globulin 2.5 g/dL (1.3-4.6); Total Protein 6.7 g/dL (6.6-8.7)
[2024-11-13 13:26] LABS: Aspartate Amino Transferase 27 U/L (0-32)
== END 2024-11-13 10:49 | disposition home or self-care (01) ==
PROVIDERS: PCP Nurse Practitioner Family; Visit Provider Internal Medicine Rheumatology
DX: Z79.899 Other long term (current) drug therapy (principal); M05.79 Rheumatoid arthritis with rheumatoid factor of multiple sites without organ or systems involvement
CPT/HCPCS: 36415; 80076; 82565; 85025; 85651; 86140